=== PATIENT | female | born 1990 | race Caucasian/White ===

== ENCOUNTER → 2020-04-04 | Outpatient (CLI) | payer BC | LOC: LAB 14:00 | PROVIDERS: ATTEND Obstetrics & Gynecology | DX: E11.9 Type 2 diabetes mellitus without complications (principal); N92.6 Irregular menstruation, unspecified | CPT/HCPCS: 36415; 82670; 83036; 83498; 83516; 84403; 84443 ==

== ENCOUNTER → 2020-11-13 | Outpatient (CLI) | payer BC ==
--- NOTE | 2020-11-13 18:18 | Diagnostic Imaging Report ---
PROCEDURE: US PELVIC (NON OB) TECHNIQUE: Multiple real-time grayscale images were obtained over the pelvis in various projections transabdominally. INDICATION: Menorrhagia FINDINGS: The uterus measures 6.7 x 3 x 5.1 cm. Uterus is anteverted. There are no myometrial or endometrial masses. Endometrial thickness is 0.8 cm. Both ovaries are normal in size, morphology, and demonstrate normal blood flow. There are no adnexal masses. There is no free pelvic fluid. IMPRESSION: Unremarkable pelvic ultrasound Dictated by: Dictated on workstation # [id number]
== END ==
LOC: RAD 10:40
PROVIDERS: ATTEND Obstetrics & Gynecology
DX: N92.0 Excessive and frequent menstruation with regular cycle (principal)
CPT/HCPCS: 76856